=== PATIENT | male | born 1960 | race Caucasian/White ===

== ENCOUNTER → 2018-12-24 | Outpatient (CLI) | payer BC ==
[2018-12-24 09:55] LABS: EOS # 0.1 (0.04-0.40); EOS % 2.5 % (0.0-4.0); HEMATOCRIT 47.4 % (42.0-52.0); HEMOGLOBIN 15.8 g/dL (13.5-18.0); LYMPH# 1.4 (1.50-4.00); MEAN CELL VOLUME 89 fl (78-100); MEAN CORPUSCULAR HEMOGLOBIN 30 pg (27-31); MEAN CORPUSCULAR HGB CONC 33 g/dL (33-37); MEAN PLATELET VOLUME 9.5 fl (7.4-10.4); MONO # 0.4 (0.20-0.80); NEU # 3.6 (1.40-6.50); PLATELET COUNT 186 K/mm3 (130-400); RED BLOOD COUNT 5.31 M/mm3 (4.20-5.60); RED CELL DISTRIBUTION WIDTH 13.3 % (11.5-14.5); WHITE BLOOD COUNT 5.6 K/mm3 (4.8-10.8)
[2018-12-24 10:10] LABS: ALBUMIN 4.3 g/dL (3.5-5.0); POTASSIUM 5.2 mmol/L (3.5-5.1)
[2018-12-24 10:11] LABS: CALCIUM 9.4 mg/dL (8.3-10.5)
[2018-12-24 10:12] LABS: TOTAL PROTEIN 7.7 g/dL (6.4-8.3)
[2018-12-24 10:14] LABS: TOTAL BILIRUBIN 0.6 mg/dL (0.2-1.2)
== END ==
LOC: LAB 09:42
PROVIDERS: Family Medicine
DX: Z00.00 Encounter for general adult medical examination without abnormal findings (principal); Z12.5 Encounter for screening for malignant neoplasm of prostate; E78.5 Hyperlipidemia, unspecified; M25.512 Pain in left shoulder

== ENCOUNTER → 2019-01-06 | Outpatient (CLI) | payer BC | LOC: RAD 12:00 | DX: M25.511 Pain in right shoulder (principal); M25.512 Pain in left shoulder ==

== ENCOUNTER → 2020-01-12 | Outpatient (CLI) | payer BC ==
[2020-01-12 10:51] LABS: EOS # 0.1 (0.04-0.40); EOS % 1.7 % (0.0-4.0); HEMATOCRIT 46.3 % (42.0-52.0); HEMOGLOBIN 15.2 g/dL (13.5-18.0); LYMPH# 1.5 (1.50-4.00); MEAN CELL VOLUME 90 fl (78-100); MEAN CORPUSCULAR HEMOGLOBIN 29 pg (27-31); MEAN CORPUSCULAR HGB CONC 33 g/dL (33-37); MEAN PLATELET VOLUME 9.2 fl (7.4-10.4); MONO # 0.4 (0.20-0.80); NEU # 2.6 (1.40-6.50); PLATELET COUNT 193 K/mm3 (130-400); RED BLOOD COUNT 5.17 M/mm3 (4.20-5.60); RED CELL DISTRIBUTION WIDTH 13.5 % (11.5-14.5); WHITE BLOOD COUNT 4.6 K/mm3 (4.8-10.8)
[2020-01-12 11:01] LABS: ALBUMIN 4.3 g/dL (3.5-5.0); POTASSIUM 4.7 mmol/L (3.5-5.1)
[2020-01-12 11:02] LABS: CALCIUM 9.3 mg/dL (8.3-10.5)
[2020-01-12 11:04] LABS: TOTAL PROTEIN 6.8 g/dL (6.4-8.3)
[2020-01-12 11:05] LABS: TOTAL BILIRUBIN 0.6 mg/dL (0.2-1.2)
== END ==
LOC: LAB 10:39
PROVIDERS: Physician Assistant
DX: Z00.00 Encounter for general adult medical examination without abnormal findings (principal); Z12.5 Encounter for screening for malignant neoplasm of prostate; E78.5 Hyperlipidemia, unspecified; Z86.718 Personal history of other venous thrombosis and embolism

== ENCOUNTER → 2022-01-31 | Outpatient (CLI) | payer BC ==
[2022-01-31 07:46] LABS: BASO # 0.04 K/mm3 (0.02-0.10); EOS # 0.34 K/mm3 (0.04-0.40); EOS % 3.9 % (0.0-4.0); HEMATOCRIT 46.1 % (42.0-52.0); HEMOGLOBIN 15.2 g/dL (13.5-18.0); LYMPH# 1.21 K/mm3 (1.50-4.00); MEAN CELL VOLUME 92 fl (78-100); MEAN CORPUSCULAR HEMOGLOBIN 30 pg (27-31); MEAN CORPUSCULAR HGB CONC 33 g/dL (33-37); MEAN PLATELET VOLUME 9.1 fl (7.4-10.4); MONO # 0.49 K/mm3 (0.20-0.80); NEU # 6.57 K/mm3 (1.40-6.50); PLATELET COUNT 180 K/mm3 (130-400); RED BLOOD COUNT 5.04 M/mm3 (4.20-5.60); RED CELL DISTRIBUTION WIDTH 13.2 % (11.5-14.5); WHITE BLOOD COUNT 8.7 K/mm3 (4.8-10.8)
[2022-01-31 08:05] LABS: ALBUMIN 4.3 g/dL (3.5-5.0); POTASSIUM 4.6 mmol/L (3.5-5.1)
[2022-01-31 08:06] LABS: CALCIUM 9.3 mg/dL (8.3-10.5)
[2022-01-31 08:10] LABS: TOTAL BILIRUBIN 0.7 mg/dL (0.2-1.2)
== END ==
LOC: LAB 07:28
PROVIDERS: Family Medicine
DX: Z00.00 Encounter for general adult medical examination without abnormal findings (principal); E78.5 Hyperlipidemia, unspecified

== ENCOUNTER → 2023-01-21 | Outpatient (CLI) | payer BC ==
[2023-01-21 09:19] LABS: BASO # 0.04 K/mm3 (0.02-0.10); EOS # 0.17 K/mm3 (0.04-0.40); EOS % 3.4 % (0.0-4.0); HEMATOCRIT 49.1 % (42.0-52.0); HEMOGLOBIN 16.3 g/dL (13.5-18.0); LYMPH# 1.41 K/mm3 (1.50-4.00); MEAN CELL VOLUME 91 fl (78-100); MEAN CORPUSCULAR HEMOGLOBIN 30 pg (27-31); MEAN CORPUSCULAR HGB CONC 33 g/dL (33-37); MEAN PLATELET VOLUME 9.1 fl (7.4-10.4); MONO # 0.42 K/mm3 (0.20-0.80); NEU # 2.94 K/mm3 (1.40-6.50); PLATELET COUNT 180 K/mm3 (130-400); RED BLOOD COUNT 5.41 M/mm3 (4.20-5.60); RED CELL DISTRIBUTION WIDTH 12.7 % (11.5-14.5)
[2023-01-21 09:21] LABS: ALBUMIN 4.4 g/dL (3.5-5.0); POTASSIUM 4.9 mmol/L (3.5-5.1)
[2023-01-21 09:22] LABS: CALCIUM 9.9 mg/dL (8.3-10.5)
[2023-01-21 09:23] LABS: TOTAL PROTEIN 7.1 g/dL (6.4-8.3)
[2023-01-21 09:25] LABS: TOTAL BILIRUBIN 0.6 mg/dL (0.2-1.2)
== END ==
LOC: LAB 09:05
PROVIDERS: Nurse Practitioner
DX: Z00.00 Encounter for general adult medical examination without abnormal findings (principal); R63.5 Abnormal weight gain

== ENCOUNTER → 2023-10-23 | Outpatient (CLI) | payer OTHER ==
[2023-10-23 15:39] LABS: BASO # 0.04 K/mm3 (0.02-0.10); EOS # 0.22 K/mm3 (0.04-0.40); EOS % 2.9 % (0.0-4.0); HEMATOCRIT 44.7 % (42.0-52.0); HEMOGLOBIN 14.9 g/dL (13.5-18.0); LYMPH# 1.29 K/mm3 (1.50-4.00); MEAN CELL VOLUME 91 fl (78-100); MEAN CORPUSCULAR HEMOGLOBIN 30 pg (27-31); MEAN CORPUSCULAR HGB CONC 33 g/dL (33-37); MEAN PLATELET VOLUME 8.5 fl (7.4-10.4); MONO # 0.48 K/mm3 (0.20-0.80); NEU # 5.62 K/mm3 (1.40-6.50); PLATELET COUNT 189 K/mm3 (130-400); RED BLOOD COUNT 4.94 M/mm3 (4.20-5.60); RED CELL DISTRIBUTION WIDTH 12.5 % (11.5-14.5); WHITE BLOOD COUNT 7.7 K/mm3 (4.8-10.8)
[2023-10-23 15:45] LABS: ALBUMIN 4.4 g/dL (3.4-4.8)
[2023-10-23 15:47] LABS: CALCIUM 9.5 mg/dL (8.3-10.5)
[2023-10-23 15:50] LABS: TOTAL BILIRUBIN 0.7 mg/dL (0.2-1.2)
[2023-10-23 16:58] LABS: D-DIMER 8.37 mg/L FEU (0.15-0.50)
== END ==
LOC: LAB 15:23
PROVIDERS: Nurse Practitioner
DX: R22.40 Localized swelling, mass and lump, unspecified lower limb (principal)

== ENCOUNTER → 2023-10-28 | Outpatient (CLI) | payer OTHER | LOC: VAS 09:12 → RAD 09:12 | DX: I82.402 Acute embolism and thrombosis of unspecified deep veins of left lower extremity (principal) ==

== ENCOUNTER → 2024-01-07 | Outpatient (CLI) | payer OTHER ==
[2024-01-07 13:10] LABS: HEMATOCRIT 42.9 % (42.0-52.0); HEMOGLOBIN 14.6 g/dL (13.5-18.0); MEAN PLATELET VOLUME 8.5 fl (7.4-10.4); RED BLOOD COUNT 4.82 M/mm3 (4.20-5.60); RED CELL DISTRIBUTION WIDTH 12.7 % (11.5-14.5); WHITE BLOOD COUNT 4.9 K/mm3 (4.8-10.8)
[2024-01-07 13:24] LABS: CALCIUM 9.4 mg/dL (8.3-10.5)
== END ==
LOC: LAB 12:56
PROVIDERS: Internal Medicine Interventional Cardiology
DX: Z86.718 Personal history of other venous thrombosis and embolism (principal)

== ENCOUNTER → 2024-01-25 | Outpatient (CLI) | payer OTHER ==
[2024-01-25 10:03] LABS: BASO # 0.02 K/mm3 (0.02-0.10); EOS # 0.14 K/mm3 (0.04-0.40); EOS % 2.5 % (0.0-4.0); HEMATOCRIT 44.7 % (42.0-52.0); HEMOGLOBIN 14.9 g/dL (13.5-18.0); LYMPH# 1.47 K/mm3 (1.50-4.00); MEAN CELL VOLUME 90 fl (78-100); MEAN CORPUSCULAR HEMOGLOBIN 30 pg (27-31); MEAN CORPUSCULAR HGB CONC 33 g/dL (33-37); MEAN PLATELET VOLUME 8.7 fl (7.4-10.4); MONO # 0.39 K/mm3 (0.20-0.80); NEU # 3.66 K/mm3 (1.40-6.50); PLATELET COUNT 176 K/mm3 (130-400); RED BLOOD COUNT 4.95 M/mm3 (4.20-5.60); WHITE BLOOD COUNT 5.7 K/mm3 (4.8-10.8)
[2024-01-25 10:08] LABS: ALBUMIN 4.2 g/dL (3.4-4.8)
[2024-01-25 10:09] LABS: CALCIUM 9.7 mg/dL (8.3-10.5)
[2024-01-25 10:10] LABS: TOTAL PROTEIN 6.9 g/dL (6.2-8.1)
[2024-01-25 10:12] LABS: TOTAL BILIRUBIN 0.6 mg/dL (0.2-1.2)
== END ==
LOC: LAB 09:40
PROVIDERS: Family Medicine
DX: Z12.5 Encounter for screening for malignant neoplasm of prostate (principal); I10 Essential (primary) hypertension; E78.5 Hyperlipidemia, unspecified; E55.9 Vitamin D deficiency, unspecified